=== PATIENT | male | born 1950 | race Caucasian/White ===

== ENCOUNTER → 2020-11-30 | Outpatient (CLI) | payer OTHER | END | disposition home or self-care (01) | LOC: OIH 11:08 | PROVIDERS: ATTEND Internal Medicine Cardiovascular Disease | DX: Z13.6 Encounter for screening for cardiovascular disorders (principal) | CPT/HCPCS: 75571 ==

== ENCOUNTER → 2022-03-28 | Outpatient (CLI) | payer BC ==
[2022-03-28 12:54] LABS: ALBUMIN 3.7 g/dL (3.5-5.0); CREATININE 0.8 mg/dL (0.5-1.5); MAGNESIUM 1.9 mg/dL (1.80-2.40); POTASSIUM 4.6 mmol/L (3.5-5.1); TOTAL PROTEIN, SERUM 7.4 g/dL (6.0-8.3)
== END | disposition home or self-care (01) ==
LOC: LAB 09:10
PROVIDERS: ATTEND Physician Assistant
DX: I48.20 Chronic atrial fibrillation, unspecified (principal); R00.1 Bradycardia, unspecified
CPT/HCPCS: 36415; 80053; 80061; 83735

== ENCOUNTER → 2024-08-12 | Outpatient (CLI) | payer MEDICARE ==
[2024-08-12] MEDS: REGADENOSON 0.4 MG/5 ML PF SYG IVP ONE (15:40)
--- NOTE | 2024-08-13 09:44 | HMCSR ---
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 Informerd consent was witnessed Lyric Pettit RN First, low dose rest was performed then high dose stress. RESTING DATA: The resting ekg shows: Atrial Fibrillation, PVC's Rest SPECT myocardial perfusion imaging was performed in supine position 71 minutes following the int ravenous injection of 11.7 mCi of Tc-99 Sestamibi. Time of rest injection: 08:44: Date: 08/12/2024 Time of rest imagin:55: Date: 08/12/2024 PHARMACOLOGIC STRESS: Pharmacologic stress test was performed by injecting regadenoson 0.4 mg IV push followed by the intra venous injection of 30.3 mCi of Tc-99 Sestamibi. Time of stress injection: 10:35: Date: 08/12/2024 Time of stress imagin:48: Date: 08/12/2024 Heart Rate at time of stress injection: 61 bpm. Gated Stress SPECT was performed 73 minutes after stress injection. The images were gated to evaluate regional wall motion and calculate left ventricular ejection fracti on. STRESS DETAILS Reason for Termination: Infusion complete Stress Symptoms: Dyspnea Max HR Achieved: 71 bpm % of APMHR Achieved: 49 Max Blood Pressure: 140/51 mmHg Stress ECG: Atrial Fibrillation, PVC's Conclusion Distal anterior and lateral ischemia No infarct LV ejection fraction 53% Dilated LV at rest and stress No increased lung uptake Normal LV wall motion
== END | disposition home or self-care (01) ==
LOC: SHCH 08:22
PROVIDERS: ATTEND Internal Medicine Cardiovascular Disease
DX: I25.9 Chronic ischemic heart disease, unspecified (principal); I49.3 Ventricular premature depolarization; I48.91 Unspecified atrial fibrillation; I25.118 Atherosclerotic heart disease of native coronary artery with other forms of angina pectoris; R06.00 Dyspnea, unspecified
CPT/HCPCS: 78452; 93017; J2785; A9500 ×2